=== PATIENT | male | born 1955 | race Caucasian/White ===

== ENCOUNTER 2023-05-15 15:14 | Emergency (ER) | payer MEDICARE, MEDICAID ==
[~2023-05-15] VITALS: Ht 160 cm; Wt 68.9 kg
[2023-05-15 15:15] VITALS: BP_SYST 135; PULSE 109; RESP 19; TEMP 98; O2SAT 95
[2023-05-15] MEDS: IPRATROPIUM BROM 0.5 MG/2.5 ML VIAL.NEB (ATROVENT) INH ONE (15:40)
[2023-05-15] MEDS: ALBUTEROL SULFATE 0.083% 2.5 MG/3 ML VIAL.NEB INH ONE (15:40)
[2023-05-15 15:52] LABS: BASOPHILS # (AUTO) 0.1 K/uL (0.0-0.2); BASOPHILS % (AUTO) 0.8 % (0.0-2.0); EOSINOPHILS # (AUTO) 0.2 K/uL (0.0-0.4); EOSINOPHILS % (AUTO) 2.2 % (0.0-4.0); HEMATOCRIT 45.1 % (36-54); HEMOGLOBIN 15.5 g/dL (14.0-18.0); LYMPHOCYTES # (AUTO) 2.6 K/uL (1.0-5.5); MEAN CORPUSCULAR HEMOGLOBIN 33 pg (27-31); MEAN CORPUSCULAR HGB CONC 34 % (32-36); MEAN CORPUSCULAR VOLUME 95 fL (79.0-98.0); MONOCYTES # (AUTO) 0.8 K/uL (0.0-1.0); MONOCYTES % (AUTO) 8.9 % (1.7-9.3); NEUTROPHILS # (AUTO) 5.3 K/uL (1.8-7.7); NEUTROPHILS % (AUTO) 59.1 % (40.0-70.0); PLATELET COUNT (AUTO) 213 K/uL (130-430); RED BLOOD CELL COUNT(AUTO) 4.73 MIL/uL (4.2-6.2); RED CELL DISTRIBUTION WIDTH 13.5 % (9.0-15.0)
[2023-05-15] MEDS: NACL 0.9% 1,000 ML IV ONE (16:04)
[2023-05-15] MEDS: METHYLPREDNISOLONE SOD SUCC 40 MG/ML VIAL IVP ONE (16:04)
[2023-05-15 16:07] LABS: ALANINE AMINOTRANSFERASE 21 U/L (12-78); ALBUMIN 3.5 g/dL (3.4-4.8); ANION GAP 13 (5-15); ASPARTATE AMINOTRANSFERASE 11 U/L (10-37); CALCIUM 8.3 mg/dL (8.4-11.0); CARBON DIOXIDE 21 mmol/L (23-29); CHLORIDE 109 mmol/L (98-107); CREATININE 0.83 mg/dL (0.55-1.30); GFR AFRICAN AMERICAN 118 mL/min (>90); GFR NON AFRICAN-AMERICAN 97 mL/min (>90); GLUCOSE 227 mg/dL (74-106); POTASSIUM 3.9 mmol/L (3.5-5.1); SODIUM SERUM 143 mmol/L (136-145); TOTAL BILIRUBIN 0.2 mg/dL (0.0-1.0); UREA NITROGEN, BLOOD 16 mg/dL (8-21)
[2023-05-15 16:10] LABS: BILIRUBIN,DIRECT 0.1 mg/dL (0.0-0.3)
[2023-05-15 16:12] LABS: PROTHROMBIN TIME 9.9 SECS (9.5-12.5)
[2023-05-15 16:58] LABS: ABG O2 SAT% ESTIMATE 94.4 % (94.0-100.0); BLOOD GAS HCO3 18.5 mmol/L (21.0-27.0); BLOOD GAS PCO2 35.5 mmHg (32.0-45.0); BLOOD GAS PH 7.335 (7.350-7.450); BLOOD GAS PO2 75.4 mmHg (75.0-100.0)
[2023-05-15 17:01] LABS: ALLEN'S TEST POSITIVE (P); BLOOD GAS BASE EXCESS -6.5 mmol/L (-3.0-3.0)
[2023-05-15] MEDS: PIPERACILLIN/TAZO 3.375 GM in NS 50 ML IV ONE (18:10)
[2023-05-15] MEDS ORDERED: PIPERACILLIN/TAZOBACTAM 3.375 GM/VIAL (ZOSYN) IV ONE (18:12)
[2023-05-15 18:18] LABS: BILIRUBIN,URINE NEGATIVE (NEGATIVE); BLOOD, URINE NEGATIVE (NEGATIVE); COLOR,URINE YELLOW (YELLOW); GLUCOSE,URINE 2+ (NEGATIVE); KETONES,URINE TRACE (NEGATIVE); LEUKOCYTE ESTERASE ,URINE NEGATIVE (NEGATIVE); NITRITE, URINE NEGATIVE (NEGATIVE); PROTEIN URINE 1+ (NEGATIVE); UROBILINOGEN,URINE 0.2 (0.2-1.0)
[2023-05-15] MEDS ORDERED: AMOX-423 PO (18:21)
[2023-05-15 18:22] LABS: CLARITY/URINE SLIGHTLY HAZY (CLEAR)
[2023-05-15 18:34] VITALS: TEMP 97.9
[2023-05-15 18:41] VITALS: BP_SYST 132; PULSE 87; RESP 25; O2SAT 88
[2023-05-15 19:15] LABS: BACTERIA,URINE FEW /HPF (None Seen); FINE GRANULAR CASTS,URINE 0-10 /LPF (None Seen); HYALINE CASTS, URINE 0-10 /LPF (None Seen); RBC,URINE 0-3 /HPF (0-3); WBC,URINE 0-3 /HPF (0-3)
[2023-05-15 19:16] LABS: MUCUS,URINE 2+ /LPF (None Seen)
== END 2023-05-15 18:41 | disposition left against medical advice (07) ==
LOC: SED 15:14
DX: J96.01 Acute respiratory failure with hypoxia (principal); J18.9 Pneumonia, unspecified organism; J44.1 Chronic obstructive pulmonary disease with (acute) exacerbation; E11.65 Type 2 diabetes mellitus with hyperglycemia; R73.9 Hyperglycemia, unspecified; I10 Essential (primary) hypertension; F17.210 Nicotine dependence, cigarettes, uncomplicated; Z79.899 Other long term (current) drug therapy
CPT/HCPCS: 99291; 96365; 71045; 96361; 96375; 80076; 80048; 81000; 81001; 85025; 85610; 85730; 87040; 87086; 84484; 36415; 93005; 94640; 36600; 82803; 99292; 83605; 81015; J2543; J7030; J1030